=== PATIENT | male | born 2000 | race Caucasian/White ===

== ENCOUNTER 2022-02-01 17:07 | Emergency (ER) | payer OTHER ==
[2022-02-01] MEDS ORDERED: AMOX TR-K CLV1 EAC4 PO (20:51)
[2022-02-01] MEDS ORDERED: NORCO 5-325 TA1 EACH PO (20:51)
== END 2022-02-01 21:05 | disposition home or self-care (01) ==
LOC: FER 17:07
DX: K04.7 Periapical abscess without sinus (principal); Z88.0 Allergy status to penicillin
CPT/HCPCS: 99282; Q0163